=== PATIENT | female | born 1970 | race Caucasian/White ===

== ENCOUNTER 2017-12-04 10:28 | Emergency (ER) | END 2017-12-04 14:42 | disposition home or self-care (01) ==

== ENCOUNTER 2018-08-12 08:41 | Emergency (ER) | payer MEDICAID ==
[~2018-08-12] VITALS: Ht 160 cm; Wt 69.7 kg
[~2018-08-12 08:41] MED LIST: HYDR25TA6 PO; ONDA4TAB14 PO
[2018-08-12 08:42] VITALS: RESP 18; Ht 160 cm; Wt 69.7 kg
[2018-08-12] MEDS ORDERED: ONDANSETRON (ODT) 4 MG TAB ODT STA (08:56)
[2018-08-12] MEDS ORDERED: HYDROCODONE/APAP (5/325) TAB PO ONE (09:00)
[2018-08-12] MEDS ORDERED: CEFTRIAXONE 1 GM INJ IM ONE (11:00)
[2018-08-12] MEDS ORDERED: LIDOCAINE 1% (MPF) 5 ML VIAL INJ ONE (11:00)
[2018-08-12] MEDS ORDERED: CIPR500T4 PO (11:07)
[2018-08-12] MEDS ORDERED: FER325 PO (11:07)
[2018-08-12] MEDS ORDERED: DOCU-144 PO (11:07)
[2018-08-12 11:19] VITALS: BP 166/96; PULSE 73
--- NOTE | 2018-08-12 14:23 | ERD ---
ER Documentation Chief Complaint Chief Complaint "heavy" vaginal bleedingwith cramps x 3 days HPI 47-year-old female presents with vaginal bleeding for the last 3 days. Patient has never had this before. She denies any medication use. Denies other medical problems. NKDA. Surgical history . Social history denies ROS All systems reviewed and are negative except as per history of present illness. Medications Home Meds Active Scripts Docusate Sodium* (Colace*) 100 Mg Capsule, 100 MG PO TID, #30 CAP Prov:ELOY BROOKS PA-C 08/12/18 Ferrous Sulfate* (Ferrous Sulfate*) 325 Mg Tabec, 325 MG PO BID, #30 TAB Prov:ELOY BROOKS PA-C 08/12/18 Ciprofloxacin Hcl* (Ciprofloxacin Hcl*) 500 Mg Tablet, 500 MG PO BID for 7 Days, TAB Prov:ELOY BROOKS PA-C 08/12/18 Hydrochlorothiazide* (Hydrochlorothiazide*) 25 Mg Tab, 25 MG PO DAILY, #30 TAB Prov:RUSLAN FAIRBANKS MD 12/04/17 Ondansetron (Ondansetron Odt) 4 Mg Tab.rapdis, 4 MG PO Q6H PRN for NAUSEA AND/OR VOMITING, #10 TAB Prov:RUSLAN FAIRBANKS MD 12/04/17 Allergies Allergies: Coded Allergies: No Known Allergy (Unverified , 12/04/17) PMhx/Soc History of Surgery: No Anesthesia Reaction: No Hx Neurological Disorder: No Hx Respiratory Disorders: No Hx Cardiac Disorders: Yes (htn) Hx Psychiatric Problems: No Hx Miscellaneous Medical Probl: Yes (dm) Hx Alcohol Use: No Hx Substance Use: No Hx Tobacco Use: No Smoking Status: Never smoker FmHx Family History: No diabetes, No coronary disease, No other Physical Exam Vitals Vital Signs Date Temp Pulse Resp B/P (MAP) Pulse Ox O2 O2 Flow FiO2 Time Delivery Rate 08/12/18 73 166/96 99 Room Air 11:19 (119) 08/12/18 98.2 86 18 185/105 100 08:42 (131) Physical Exam GENERAL: The patient is well-appearing, well-nourished, in no acute distress HEENT: Atraumatic. Conjunctivae are pink. Pupils equal, round, and reactive to light. There is no scleral icterus. Tympanic membranes clear bilaterally. Oropharynx clear CHEST: Clear to auscultation bilaterally. There are no rales, wheezes or rhonchi. HEART: Regular rate and rhythm. No murmurs, clicks, rubs or gallops. ABDOMEN:Soft, nontender and nondistended. Good bowel sounds. No rebound or guarding. No gross peritonitis. No gross organomegaly or masses. BACK: No midline or flank tenderness. Result Diagram: 08/12/18 0910 08/12/18 09 Results 24 hrs Laboratory Tests Test 08/12/18 09:09 08/12/18 09:10 Urine Test NEGATIVE White Blood Count 6.0 10^3/ul Red Blood Count 4.49 10^6/ul Hemoglobin 11.6 g/dl Hematocrit 36.3 % Mean Corpuscular Volume 80.8 fl Mean Corpuscular Hemoglobin 25.8 pg Mean Corpuscular Hemoglobin Concent 32.0 g/dl Red Cell Distribution Width 15.2 % Platelet Count 198 10^3/UL Mean Platelet Volume 11.1 fl Immature Granulocytes % 0.300 % Neutrophils % 63.3 % Lymphocytes % 27.6 % Monocytes % 6.3 % Eosinophils % 1.7 % Basophils % 0.8 % Nucleated Red Blood Cells % 0.0 /100WBC Immature Granulocytes # 0.020 10^3/ul Neutrophils # 3.8 10^3/ul Lymphocytes # 1.7 10^3/ul Monocytes # 0.4 10^3/ul Eosinophils # 0.1 10^3/ul Basophils # 0.1 10^3/ul Nucleated Red Blood Cells # 0.0 10^3/ul Urine Color RED Urine Clarity TURBID Urine pH 7.0 Urine Specific Lyons 1.020 Urine Ketones TRACE mg/dL Urine Nitrite POSITIVE mg/dL Urine Bilirubin NEGATIVE mg/dL Urine Urobilinogen NEGATIVE mg/dL Urine Leukocyte Esterase NEGATIVE Erickson/ul Urine Microscopic RBC /HPF Urine Microscopic WBC /HPF Urine Hemoglobin 3+ mg/dL Urine Glucose 1+ mg/dL Urine Total Protein 2+ mg/dl Sodium Level 140 mmol/L Potassium Level 4.6 mmol/L Chloride Level 103 mmol/L Carbon Dioxide Level 27 mmol/L Anion Gap 10 Blood Urea Nitrogen 11 mg/dl Creatinine 0.56 mg/dl Est Glomerular Filtrat Rate mL/min > 60 mL/min Glucose Level 156 mg/dl Calcium Level 9.5 mg/dl Total Bilirubin 0.4 mg/dl Direct Bilirubin 0.00 mg/dl Indirect Bilirubin 0.4 mg/dl Aspartate Amino Transf (AST/SGOT) 17 IU/L Alanine Aminotransferase (ALT/SGPT) 16 IU/L Alkaline Phosphatase 73 IU/L Total Protein 7.7 g/dl Albumin 4.3 g/dl Globulin 3.40 g/dl Albumin/Globulin Ratio 1.26 Lipase 49 U/L Current Medications Medications Dose Sig/Felicitas Start Time Status Last (Trade) Ordered Route PRN Stop Time Admin Dose Reason Admin 1 tab ONCE ONCE 08/12/18 DC 08/12/18 Acetaminophen PO 09:00 08/12/18 09:26 / 09:01 Hydrocodone Bitart ([place] (5/325)) Ondansetron 4 mg ONCE STAT 08/12/18 DC 08/12/18 HCl (Zofran ODT 08:56 08/12/18 09:27 Odt) 08:57 Ceftriaxone 1 gm ONCE ONCE 08/12/18 DC 08/12/18 Sodium IM 11:00 08/12/18 10:49 (Rocephin) 11:01 Lidocaine 5 ml ONCE ONCE 08/12/18 DC 08/12/18 (Xylocaine INJ 11:00 08/12/18 10:48 1% (Mpf)) 11:01 Procedures/MDM DIAGNOSTIC IMAGING REPORT Patient: JORGE ALBERTO ROWE : 1970 Age: 47 Sex: F MR #: [id number] DOS: 08/12/18 0856 Ordering MD: JIGNA BROOKS PA-C Location: E Room/Bed: PROCEDURE: ULTRASOUND PELVIS CLINICAL INDICATION: 47-year-old female with vaginal bleeding. TECHNIQUE: Multiple sonographic images of the pelvis were obtained utilizing a transabdominal and endovaginal technique. The images were reviewed on a PACS workstation. COMPARISON: None. FINDINGS: The uterus is visualized and measures 9.2 x 7.7 x 6.5 cm. Multiple Nabothian cysts are seen within the endocervical region. The endometrial echo complex is within normal limits and measures 15.5 mm. There is no evidence for free fluid. The right ovary has a normal echotexture and measures 6.1 x 5.4 x 5.0 cm. There is a septated right ovarian cyst measuring 4.6 x 4.6 x 4.2 cm. The left ovary has a normal echotexture and measures 3.1 x 1.7 x 2.2 cm. There is flow identified within the ovaries bilaterally. There is a fluid-filled tubular structure within the left adnexal region adjacent to the ovary measuring approximately 5.3 x 1.5 cm. 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 IMPRESSION: 1. Septated right ovarian cyst. 2. Tubular left adnexal structure adjacent to the ovary suggestive of a hydrosalpinx. 3. Right pelvic kidney. ER Course: Rocephin given in ED MDM: 47-year-old female presenting with vaginal bleeding. Patient has findings consistent with a urinary tract infection. I have low suspicion for hemodynamic instability. I have low suspicion for pelvic abnormality. Patient has some mild tenderness to suprapubic region but is not lateralized. I have low suspicion for tubo-ovarian abscess or sepsis. Patient is discharged with strict ER precautions and recommended follow-up with OB. Patient told symptoms change or worsen to return immediately to the ER. All questions answered to discharge Departure Diagnosis: Primary Impression: Vaginal bleeding Additional Impression: UTI (urinary tract infection) Condition: Stable Patient Instructions: Understanding Urinary Tract Infections (UTIs), Menorrhagia Referrals: CONTACT CENTER TEAM [place] [address] [facility] [address] [place], [place] [phone] OFFICE FAX JOSE WILSON [address] [place], [place] [phone] [place] [address] [place], [place] [phone] JOSEFA NUNO [address] [facility], [facility] [address] [place] [address] [address] [address] [place], [place] [phone] [facility] [address] [place] [address] [facility] [id number] - ELIZA FARLEY [address], [facility] [address] [address], [place] [address] [facility]. [address], [facility] [address] [address], [facility] [address] [place], [place] [phone] Additional Instructions: FOLLOW UP WITH YOUR PRIMARY CARE PHYSICIAN TOMORROW.Return to this facility if you are not improving as expected. ELOY BROOKS PA-C August 12, 2018 14:23
== END 2018-08-12 11:21 | disposition home or self-care (01) ==
LOC: FTE 08:41
DX: N93.9 Abnormal uterine and vaginal bleeding, unspecified (principal); N39.0 Urinary tract infection, site not specified; I10 Essential (primary) hypertension; E11.9 Type 2 diabetes mellitus without complications
CPT/HCPCS: 36415; 76830; 76856; 80053; 81001; 83690; 84703; 85025; 96372; J0696; Z7502; Z7610